=== PATIENT | female | born 1960 | race African-American/Black ===

== ENCOUNTER 2022-05-09 13:05 | Emergency (ER) | payer SELFPAY ==
[~2022-05-09] VITALS: Ht 165.1 cm; Wt 77.0 kg
[2022-05-09 13:22] VITALS: BP 191/81
[2022-05-09] MEDS ORDERED: CETI10TA6 PO (15:35)
[2022-05-09] MEDS ORDERED: FLUT9.9S BOTHNSTRLS (15:35)
[2022-05-09] MEDS ORDERED: NAPR-681 PO (15:35)
[2022-05-09] MEDS ORDERED: AMOX-494 PO (15:35)
== END 2022-05-09 15:57 | disposition home or self-care (01) ==
LOC: ER 13:05
DX: J06.9 Acute upper respiratory infection, unspecified (principal); H92.02 Otalgia, left ear; H69.82 Other specified disorders of Eustachian tube, left ear
CPT/HCPCS: 99283

== ENCOUNTER 2022-07-13 17:30 | Emergency (ER) | payer MEDICAID ==
[~2022-07-13] VITALS: Ht 167.6 cm; Wt 75.0 kg
[~2022-07-13 17:30] MED LIST: AMOX-494 PO; CETI10TA6 PO; FLUT9.9S BOTHNSTRLS; NAPR-681 PO
[2022-07-13] MEDS ORDERED: KETOROLAC 30MG/ML VIAL IV STA (22:31)
[2022-07-13 23:36] LABS: CHLORIDE 103 mEq/L (98-107)
[2022-07-13 23:41] LABS: BASOPHILS % 0.4 % (0.0-2.0); HEMOGLOBIN. 11.6 g/dL (12.0-16.0); LYMPHOCYTES % 50.2 % (20.0-50.0); MEAN CORPUSCULAR HEMOGLOBIN 31.9 pg (28.0-32.0); MEAN CORPUSCULAR VOLUME 96.1 fL (81.0-99.0); MEAN PLATELET VOLUME 9.9 fl (7.4-10.4); MONOCYTES % 6.9 % (2.0-8.0); NEUTROPHILS % 40.5 % (40.0-76.0); PLATELET 171 x1000/uL (130-400); RED BLOOD CELL COUNT 3.64 mill/uL (4.2-5.4); RED CELL DISTRIBUTION WIDTH 13.3 % (11.6-14.6)
[2022-07-14] MEDS ORDERED: IBUP-2029 MT (00:18)
[2022-07-14 00:52] VITALS: BP 154/104
== END 2022-07-14 00:59 | disposition home or self-care (01) ==
LOC: ER 17:30
DX: R51.9 Headache, unspecified (principal); I10 Essential (primary) hypertension; E78.00 Pure hypercholesterolemia, unspecified; Z96.21 Cochlear implant status; Z98.890 Other specified postprocedural states
CPT/HCPCS: 36415; 70450; 80053; 85025; 96374; 99285; J1885; Z7610

== ENCOUNTER 2022-07-16 08:13 | Emergency (ER) | payer MEDICAID ==
[~2022-07-16] VITALS: Ht 157.5 cm; Wt 60.0 kg
[~2022-07-16 08:13] MED LIST changes: +IBUP-2029 MT
[2022-07-16 08:27] VITALS: BP 183/103
[2022-07-16] MEDS ORDERED: LABETALOL HCL 100MG TABLET PO ONE (08:45)
[2022-07-16 11:19] LABS: BASOPHILS % 0.2 % (0.0-2.0); EOSINOPHILS % 3.2 % (0.0-5.0); HEMATOCRIT. 35.7 % (36.0-48.0); HEMOGLOBIN. 11.9 g/dL (12.0-16.0); LYMPHOCYTES % 43.8 % (20.0-50.0); MEAN CORPUSCULAR HEMOGLOBIN 31.8 pg (28.0-32.0); MEAN CORPUSCULAR VOLUME 95.1 fL (81.0-99.0); MEAN PLATELET VOLUME 9.8 fl (7.4-10.4); MONOCYTES % 5.3 % (2.0-8.0); NEUTROPHILS % 47.5 % (40.0-76.0); PLATELET 189 x1000/uL (130-400); RED BLOOD CELL COUNT 3.75 mill/uL (4.2-5.4); RED CELL DISTRIBUTION WIDTH 13.2 % (11.6-14.6)
[2022-07-16 11:23] LABS: CHLORIDE 105 mEq/L (98-107)
[2022-07-16] MEDS ORDERED: AMLODIPINE 5MG TABLET PO ONE (15:45)
[2022-07-16] MEDS ORDERED: AMLO5TAB4 MT ×3 (16:00→17:43)
== END 2022-07-16 18:07 | disposition home or self-care (01) ==
LOC: ER 08:13
DX: I16.0 Hypertensive urgency (principal); E78.00 Pure hypercholesterolemia, unspecified; Z98.890 Other specified postprocedural states
CPT/HCPCS: 36415; 80053; 85025; 99284

== ENCOUNTER 2022-11-28 21:21 | Emergency (ER) | payer MEDICAID ==
[~2022-11-28] VITALS: Ht 152.4 cm; Wt 52.8 kg
[~2022-11-28 21:21] MED LIST changes: +AMLO5TAB4 MT
[2022-11-28 22:13] VITALS: BP 153/70; PULSE 68; TEMP 97.9; O2SAT 98
[2022-11-29] MEDS ORDERED: CEPH500C2 MT (06:41)
== END 2022-11-29 08:43 | disposition home or self-care (01) ==
LOC: ER 21:21
DX: H04.003 Unspecified dacryoadenitis, bilateral lacrimal glands (principal); E78.00 Pure hypercholesterolemia, unspecified; I10 Essential (primary) hypertension
CPT/HCPCS: 70486; 99284

== ENCOUNTER 2023-01-11 18:30 | Emergency (ER) | payer MEDICAID ==
[~2023-01-11] VITALS: Ht 172.7 cm; Wt 57.2 kg
[~2023-01-11 18:30] MED LIST changes: +AMLO10TA4 PO; -AMLO5TAB4 MT; -AMOX-494 PO; +HYDR25TA PO
[2023-01-11 18:42] VITALS: BP 158/77; O2SAT 97
[2023-01-11] MEDS ORDERED: ALBUTEROL (0.083%) 2.5MG/3ML NEB HHN ONE (19:00)
[2023-01-11] MEDS ORDERED: ACETAMINOPHEN 325MG TABLET PO ONE (19:00)
[2023-01-11 20:05] LABS: BASOPHILS % 0.3 % (0.0-2.0); EOSINOPHILS % 1.7 % (0.0-5.0); HEMATOCRIT. 32.1 % (36.0-48.0); HEMOGLOBIN. 10.8 g/dL (12.0-16.0); LYMPHOCYTES % 11.5 % (20.0-50.0); MEAN CORPUSCULAR HEMOGLOBIN 31.4 pg (28.0-32.0); MEAN CORPUSCULAR HGB CONC 33.6 g/dL (31.0-37.0); MEAN CORPUSCULAR VOLUME 93.6 fL (81.0-99.0); MEAN PLATELET VOLUME 9.1 fl (7.4-10.4); MONOCYTES % 10.2 % (2.0-8.0); NEUTROPHILS % 76.3 % (40.0-76.0); PLATELET 162 x1000/uL (130-400); RED BLOOD CELL COUNT 3.43 mill/uL (4.2-5.4); RED CELL DISTRIBUTION WIDTH 12.9 % (11.6-14.6); WHITE BLOOD COUNT 7.1 x1000/uL (4.5-11.0)
[2023-01-11] MEDS ORDERED: GUAIFENESIN 600MG ER TABLET PO SCH (21:00)
[2023-01-11] MEDS ORDERED: ACETAMINOPHEN 325MG TABLET PO NR (21:45)
[2023-01-11] MEDS ORDERED: ALBUTEROL (0.083%) 2.5MG/3ML NEB HHN NR (21:45)
[2023-01-11 22:20] VITALS: PULSE 97; RESP 18
[2023-01-11] MEDS ORDERED: ACET-2708 MT (22:49)
[2023-01-11] MEDS ORDERED: ALBU6.7H3 INH (22:49)
[2023-01-11] MEDS ORDERED: GUAI600T26 MT (22:49)
[2023-01-11 23:12] VITALS: PULSE 97; RESP 18; TEMP 99
== END 2023-01-11 23:10 | disposition home or self-care (01) ==
LOC: ER 18:30
DX: U07.1 COVID-19 (principal); J40 Bronchitis, not specified as acute or chronic; I10 Essential (primary) hypertension; E78.00 Pure hypercholesterolemia, unspecified; Z86.73 Personal history of transient ischemic attack (TIA), and cerebral infarction without residual deficits
CPT/HCPCS: 85025; 36415; 71045; 94640; 93005; 99285; 87426; Z7610 ×3; C9803

== ENCOUNTER 2023-01-19 15:17 | Emergency (ER) | payer MEDICAID ==
[~2023-01-19] VITALS: Ht 152.4 cm; Wt 57.7 kg
[~2023-01-19 15:17] MED LIST changes: +ACET-2708 MT; +ALBU6.7H3 INH; +GUAI600T26 MT
[2023-01-19 15:40] VITALS: BP 132/84; PULSE 88; RESP 16; TEMP 98.5; O2SAT 100
[2023-01-19] MEDS ORDERED: ERYT1OIN6 RIGHTEYE (20:06)
== END 2023-01-19 21:56 | disposition home or self-care (01) ==
LOC: ER 15:17
DX: H01.006 Unspecified blepharitis left eye, unspecified eyelid (principal)
CPT/HCPCS: 99283

== ENCOUNTER 2025-02-11 01:40 | Emergency (ER) | payer MEDICAID ==
[~2025-02-11] VITALS: Ht 152.4 cm; Wt 69.0 kg
[~2025-02-11 01:40] MED LIST changes: +AMLO-905 PO; -AMLO10TA4 PO; +ERYT1OIN6 RIGHTEYE; +IBUP-1455 MT; -IBUP-2029 MT
[2025-02-11 01:48] VITALS: O2SAT 98
[2025-02-11] MEDS: ACETAMINOPHEN 500MG TABLET PO ONE (03:01)
[2025-02-11 03:14] VITALS: BP 136/76; PULSE 63; RESP 20; TEMP 36.9; O2SAT 100
[2025-02-11] MEDS ORDERED: TOPUD MT (03:14)
== END 2025-02-11 03:19 | disposition home or self-care (01) ==
LOC: ER 01:40
DX: K04.7 Periapical abscess without sinus (principal); K08.89 Other specified disorders of teeth and supporting structures; I10 Essential (primary) hypertension; Z79.2 Long term (current) use of antibiotics; Z79.899 Other long term (current) drug therapy
CPT/HCPCS: 99283